=== PATIENT | male | born 1935 | race Caucasian/White ===

== ENCOUNTER 2017-09-27 18:45 | Inpatient (IN) | payer OTHER ==
[~2017-09-27] VITALS: Ht 193 cm; Wt 116.6 kg
[~2017-09-27 18:45] MED LIST: ADULT LOW DOSE81 MG; ADULT LOW DOSE81 MG PO; ALANINE; BIOFLEX TABLET1 EACH; COUMADIN 10MG T10 M1; FISHOIL; MEDROL4 MG PO; MELATONIN3 MG PO; OXYCODONE-APAP1 EAC4 PO; PROSCAR 5MG TABL5 M1 PO; PROSCAR 5MG TABL5 MG PO; TERAZOSIN; VICODIN 5-5001 EACH PO
[2017-09-27 18:50] VITALS: BP 179/96
[2017-09-27] MEDS ORDERED: OMEPRAZOLE40 MG PO (19:02)
[2017-09-27 19:22] LABS: ABSOLUTE BASOPHILS 0.1 thou/uL (0.0-0.2); ABSOLUTE EOSINOPHILS 0.8 thou/uL (0.0-0.7); ABSOLUTE MONOCYTES 0.8 thou/uL (0.0-1.2); ABSOLUTE NEUTROPHILS 4.3 thou/uL (1.6-8.1); BASOPHILS 0.7 %; EOSINOPHILS 7.8 %; HEMATOCRIT 43.8 % (42.0-52.0); HEMOGLOBIN 14.7 gm/dL (14.0-18.0); LYMPHOCYTES 40.1 %; MCH 33.4 pg (26.0-34.0); MCHC 33.6 g/dL (28.0-37.0); MCV 99.5 fL (80.0-100.0); MONOCYTES 8.1 %; NUCLEATED RBCS 0 /100WBC; PLATELET COUNT* 275 thou/uL (150-400); POLYS 43.3 %; RBC 4.41 mil/uL (4.50-6.00); WBC 9.9 thou/uL (4.0-11.0)
[2017-09-27 19:27] LABS: CALCIUM 9.1 mg/dL (8.5-10.1); CREATININE 1.3 mg/dL (0.6-1.3); POTASSIUM 4.1 mmol/L (3.5-5.1)
[2017-09-27 19:36] LABS: APTT 24.6 Seconds (25.0-31.3); INR 1.1; PROTIME 10.3 Seconds (9.20-11.50)
[2017-09-27 19:37] LABS: TOTAL BILIRUBIN 0.4 mg/dL (<0.1-1.0); TOTAL PROTEIN 8.3 g/dL (6.4-8.2); TROPONIN-I LEVEL 0.34 ng/mL (<0.06)
[2017-09-27 22:58] VITALS: BP 149/87
[2017-09-27 23:00] VITALS: BP 154/84
[2017-09-28] VITALS (15 sets, daily range): BP systolic 117–163; BP diastolic 59–86
--- NOTE | 2017-09-28 05:27 | NUR ---
PATIENT RESTED IN BED, NO ACUTE CHANGES. PATIENT DENIES PAIN, NO SIGNS OF DISTRESS. PATIENT IS NPO. FALL PRECAUTIONS IN PLACE, BED ALARM ON, CALL LIGHT WITHIN REACH, HOURLY ROUNDING OBSERVED.
[2017-09-28 05:42] LABS: CHOLESTEROL 112 mg/dL (<200); HDL CHOLESTEROL 32 mg/dL (>40); LDL CHOLESTEROL 59 mg/dL (<100); TC:HDL 3.5 Ratio (Not establshd); TRIGLYCERIDE 107 mg/dL (<150); VLDL 21 mg/dL (<40)
[2017-09-28 05:48] LABS: SERUM ASSESSMENT Clear
[2017-09-28 10:22] LABS: CREATININE 1.2 mg/dL (0.6-1.3); POTASSIUM 3.8 mmol/L (3.5-5.1)
[2017-09-28] MEDS ORDERED: ROXICODONE5 M2 PO (13:25)
--- NOTE | 2017-09-28 14:05 | EKG ---
[place] [address] ELECTROCARDIOGRAM REPORT Name: ILENE WINTER Room: [place] [address] ADM IN [facility]#: [id number] Admission: 09/27/17 Attend Phys: Adryan Lezama, Discharge: Date of : 37 Report #: [id number] THIS REPORT FOR: //name// 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: : 1935 Requested By: Monica Zambrano Order Number: [id number] MD: Sushant Ho Measurements Intervals [place] Rate: 69 P: 26 [place]: 177 QRS: 17 QRSD: 94 T: -12 QT: 418 QTc: 448 Interpretive Statements Sinus rhythm Borderline repolarization abnormality Compared to ECG 06/17/2014 14:13:34 st changes more prominent Electronically Signed On 09-28-2017 14:04:54 CDT by Sushant Ho [email or web address] <ELECTRONICALLY SIGNED> By: Sushant Ho MD, [facility] 09/28/17 1404 1850 1850 Sushant Ho MD, [facility] /EPI
--- NOTE | 2017-09-28 14:08 | EKG ---
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
--- NOTE | 2017-09-28 17:55 | NUR ---
ASSUMED CARE OF PT AT 0730. PT IS A&O X4 CALM AND COOPERATIVE. PT WENT TO THE [facility] THIS MORNING AND HAD 2 DRUG ELUDING STENTS PLACED. ACCESS WAS OBTAINED THROUGH THE RIGHT RADIAL ARTERY. PRESSURE WAS DECREASED PER PROTOCOL AND HAS NOW BEEN REMOVED AND A TEGADERM AND 4X4 WAS PLACED. NO BLEEDING OR HEMATOMA NOTED. PT VS MONITORED AND CHARTED PER PROTOCOL AND WNL. PT HAS HAD C/O BACK AND NECK PAIN THAT HAVE BEEN EFFECTIVELY CONTROLLED WITH PRN PO PAIN MEDS PER MAY. PT RESTING IN BED AT THIS TIME WITH NO APPARENT SIGNS OF DISTRESS. NURSING WILL CONTINUE TO MONITOR. NO C/O CP THIS SHIFT.
[2017-09-29] VITALS (7 sets, daily range): BP systolic 104–137; BP diastolic 61–78
--- NOTE | 2017-09-29 04:30 | NUR ---
ASSUMED PT CARE AT 1930. ASSESSMENT COMPLETED CHARTED. C/O ARTHRITIS IN BACK, HIPS, AND SHOULDERS. GAVE PRN OXY PER P.O. PT RESTING AT THIS TIME, IV SL SINCE AROUND 10PM, ABLE TO MAKE NEEDS KNOWN, UP WITH STANDBY. NO C/O CHEST PAIN OR SOA, ACCESS SITE FROM YESTERDAYS CATH IS CLEAN, DRY, NO S/SX OF HEMATOMA, AND SLIGHT BRUISING AROUND THE EDGES NOTED. NO PAIN NOTED FROM AREA. WILL CONTINUE TO MONITOR.
[2017-09-29 05:18] LABS: HEMATOCRIT 39.5 % (42.0-52.0); HEMOGLOBIN 13.4 gm/dL (14.0-18.0); MCHC 33.9 g/dL (28.0-37.0); MCV 100.3 fL (80.0-100.0); MPV 9.3 fl. (7.2-11.1); RBC 3.93 mil/uL (4.50-6.00); RDW-CV 13.9 % (10.5-14.5); WBC 9.3 thou/uL (4.0-11.0)
[2017-09-29 05:50] LABS: CALCIUM 9.1 mg/dL (8.5-10.1); CREATININE 1.3 mg/dL (0.6-1.3); MAGNESIUM 2.3 mg/dL (1.8-2.4); POTASSIUM 5.2 mmol/L (3.5-5.1)
[2017-09-29 06:01] LABS: TROPONIN-I LEVEL 24.5 ng/mL (<0.06)
--- NOTE | 2017-09-29 07:19 | CON ---
[address] [address] CONSULTATION Name: MOYILENE Eduardo Room: [place] [address] ADM IN .R.#: [id number] Admission: 09/27/17 Attend Phys: Adryan Lezama, Discharge: Date of : 37 Report #: [id number] THIS REPORT FOR: //name// CC: Dr. Maria Luisa ZHAO physician/PCP Adryan Lezama DATE OF SERVICE: 09/28/2017 HISTORY OF PRESENT ILLNESS: The patient is an 81-year-old white male who I was asked to see in the hospital after he complained of chest pain. The patient has no history of heart disease. He has had stress test in the past. Yesterday, he was at his home when he had some burning in his epigastric area consistent with indigestion. He had some belching. Then, about 6:00 he felt a tightness in his chest, went into his back. His left hand was numb. He felt nausea and diaphoretic. He finally came to the Emergency Room last night and was given nitroglycerin. The pain resolved after about a few hours. He has had no further pain. Cardiology consultation was requested. He denied the pain being related to lifting or bending over. He had had no recent blood in the stool. He denied the pain being related to cough. He had no rash on his chest. He denies exertional dyspnea, palpitations or syncope. PAST MEDICAL HISTORY: Significant for hemorrhoidectomy, knee surgery, tonsillectomy, uvulectomy for sleep apnea. About 7 years ago after a long car ride he developed leg pain and was found to have DVT and a pulmonary embolus. He was on warfarin for about 3 years. He does note about a month ago he was coughing and was given an inhaler and antibiotics by his primary care physician. MEDICATIONS: Currently only include omeprazole, aspirin, Proscar. ALLERGIES: He has no known drug allergies. FAMILY HISTORY: His brother had congestive heart failure. SOCIAL HISTORY: He is . 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 Quit smoking years ago. He used to drink alcohol, no longer drinks. His granddaughter is actually a nurse at [employer]. REVIEW OF SYSTEMS: He has had no history of stroke, asthma, peptic ulcer disease. He has had indigestion in the past. No liver disease, no kidney disease. He did have malaria while working as a missionary in [place]. No cancer. PHYSICAL EXAMINATION: GENERAL: Revealed a large male who is 6 feet [place] [address] CONSULTATION Name: MOYILENE Eduardo Room: [address] IN [facility]#: [id number] Admission: 09/27/17 Attend Phys: Adryan Lezama, Discharge: Date of : 37 Report #: [id number] VITAL SIGNS: He had a blood pressure of 160/80, his pulse was 70, he was afebrile. HEENT: He was anicteric. Conjunctivae pink. Mucous membranes moist. NECK: Veins nondistended. No carotid bruits. Neck supple. CHEST: Clear to auscultation. CARDIAC: Regular rate and rhythm without murmur. ABDOMEN: Soft, nontender. EXTREMITIES: Had no edema. SKIN: Warm and dry. NEUROLOGIC: Nonfocal. LYMPH: No adenopathy. MUSCULOSKELETAL: No joint effusion. LABORATORY DATA: His ECG showed a sinus rhythm with PVC. There is minimal ST segment depression noted in leads V4, V5, and V6. He did have downsloping ST segment depression in III and aVF. His chest x-ray last night in the Emergency Room showed normal heart size, clear lung macdonald. He did have a CT scan of the chest using a PE protocol last night that showed small lung pulmonary embolus in the right lower lobe. His lab work, sodium 142, BUN 20. Liver function studies were normal. His troponin this morning is 11.1. Cholesterol 112, triglycerides 107, HDL 32, LDL 59. White blood cell count 9.9, hemoglobin 14.7. IMPRESSION AND RECOMMENDATIONS: 1. Non-ST elevation myocardial infarction. Recommend cardiac catheterization. 2. History of indigestion. 3. History of sleep apnea. <ELECTRONICALLY SIGNED> By: Sushant Ho MD, [facility] 09/29/17 0719 0826 1415Sushant Ho MD, FAC /nt
[2017-09-29] MEDS ORDERED: ATORVASTATIN CA40 MG PO (08:54)
[2017-09-29] MEDS ORDERED: LOPRESSOR25 PO (08:54)
[2017-09-29] MEDS ORDERED: PROTONIX40 M1 PO (08:54)
[2017-09-29] MEDS ORDERED: CLOPIDOGREL75 MG PO (08:54)
--- NOTE | 2017-09-29 09:02 | NUR ---
ASSUMED PT. CARE AND RECEIVED REPORT AT 0730. PT A/OX4, VSS, MONITOR ON TRACNG SB. PT. DENIES CURRENT PAIN. ON RA @ 96, DENIES SOB. . FULL ASSESSMENT COMPLETED, REFER TO CHARTING. PT RIGHT WRIST WITH C/D/I DRESSING, BRUISING NOTED AT CATH SITE. CALL LIGHT IN REACH, WILL CONTINUE WITH PLAN OF CARE.
--- NOTE | 2017-09-29 14:11 | NUR ---
MET WITH PT, AND FAMILY TO DISCUSS HOME SITUATION/DC PLANNING. PT LIVES WITH . HE IS NORMALLY INDEPENDENT AND ACTIVE. HAS CANE BUT DOENS'T USE IT. HE PLANS TO RETURN HOME AT DC. PT DENIES ANY NEEDS. HE IS AWAITING CV CLEARANCE FOR DC, STATED 'I'LL WAIT TILL 4PM THEN I'M LEAVING.' NURSE AWARE.
[2017-09-29] MEDS ORDERED: NITROGLYCERIN0.4 MG SUBLING (16:39)
--- NOTE | 2017-09-29 18:40 | NUR ---
DC ORDERS RECEIVED. IV AND MONITOR REMOVED. PT. GIVEN DC INSTRUCTIONS, SCRIPTS, AND CARENOTES. ALL QUESTIONS ANSWERED. PT. LEFT VIA WHEELCHAIR TO RETURN HOME IN PERSONAL VEHICLE WITH AND SON, ALL BELONGINGS ACCOUNTED FOR.
--- NOTE | 2017-09-29 18:55 | 2DMMODE ---
[place] [address] 2 D/M-MODE ECHOCARDIOGRAM Name: ILENE WINTER Room: [facility] IN [facility]#: [id number] Admission: 09/27/17 Attend Phys: dAryan Pichardo Discharge: 09/29/17 Date of : 37 Date of Service: 09/29/17 1855 Report #: [id number] THIS REPORT FOR: //name// APPROVED REPORT Study performed: 09/29/2017 11:36:14 EXAM: Comprehensive 2D, Doppler, and color-flow Echocardiogram Patient Location: In-Patient Room #: [facility] Status: routine BSA: 2.46 HR: 56 bpm BP: 111/66 mmHg Rhythm: NSR Other Information Study Quality: Good Indications Acute AK Chest Pain 2D Dimensions LVEF(%): 62.17 (>50%) IVSd: 12.24 (7-11mm) LVOT Diam: 20.61 (18-24mm) LVDd: 43.37 mm PWd: 11.28 (7-11mm) Ascending Ao: 38.56 (22-36mm) LVDs: 28.94 (25-40mm) Aortic Root: 43.16 mm Mccoy's LVEF: 62.17 % Volumes Left Atrial Volume (Systole) LA ESV Index: 22.80 mL/m2 Aortic Valve AoV Peak Rudolph.: 1.32 m/s AO Peak Gr.: 7.01 mmHg LVOT Max P.32 mmHg AO Mean Gr.: 3.61 mmHg LVOT Mean P.38 mmHg LVOT Max V: 1.15 m/s AO V2 VTI: 28.80 cm LVOT Mean V: 0.70 m/s LAURA (VTI): 3.03 cm2 LVOT V1 VTI: 26.18 cm AI [place]: 1.20 m/s2 AI PHT: 800.68 [place] [address] 2 D/M-MODE ECHOCARDIOGRAM Name: ILENE WINTER Room: [address] IN [facility].#: [id number] Admission: 09/27/17 Attend Phys: Adryan Pichardo Discharge: 09/29/17 Date of : 37 Date of Service: 09/29/17 1855 Report #: [id number] Mitral Valve E/A Ratio: 1.13 MV Decel. Time: 223.77 ms MV E Max Rudolph.: 0.82 m/s MV PHT: 64.89 ms MVA (PHT): 3.39 cm2 TDI E/Lateral E': 7.45 E/Medial E': 10.25 Medial E' Rudolph.: 0.08 m/s Lateral E' Rudolph.: 0.11 m/s Pulmonary Valve PV Peak Rudolph.: 0.92 m/s PV Peak Gr.: 3.38 mmHg Tricuspid Valve RAP Estimate: 5.00 mmHg TR Peak Gr.: 26.86 mmHg RVSP: 31.86 mmHg PA Pressure: 31.86 mmHg Left Ventricle The left ventricle is normal size. There is normal LV segmental wall motion. There is normal left ventricular wall thickness. Left ventricular systolic function is normal. The left ventricular ejection fraction is within the normal range. LVEF is 55-60%. The left ventricular diastolic function is normal. Right Ventricle The right ventricle is normal size. The right ventricular systolic function is normal. Atria The left atrium size is normal. The right atrium size is normal. Aortic Valve Mild aortic valve sclerosis. Mild aortic regurgitation. There is no aortic valvular stenosis. Mitral Valve Mild mitral annular calcification. There is no mitral valve regurgitation noted. No evidence of mitral valve stenosis. Tricuspid Valve The tricuspid valve is normal in structure[place] [address] 2 D/M-MODE ECHOCARDIOGRAM Name: MOYILENE Eduardo Room: [address] IN M.R.#: [id number] Admission: 09/27/17 Attend Phys: Adryan Pichardo Discharge: 09/29/17 Date of : 37 Date of Service: 09/29/17 1855 Report #: [id number] regurgitation. Borderline pulmonary hypertension. Pulmonic Valve The pulmonary valve is normal in structure. Trace pulmonic regurgitation. Great Vessels The aortic root is normal in size. IVC is normal in size and collapses with >50% inspiration Pericardium There is no pericardial effusion. <Conclusion> The left ventricle is normal size. There is normal left ventricular wall thickness. Left ventricular systolic function is normal. The left ventricular ejection fraction is within the normal range. LVEF is 55-60%. The left ventricular diastolic function is normal. The right ventricle is normal size. The left atrium size is normal. Mild aortic valve sclerosis. Mild aortic regurgitation. There is no aortic valvular stenosis. Mild mitral annular calcification. There is no mitral valve regurgitation noted. No evidence of mitral valve stenosis. The tricuspid valve is normal in structure. IVC is normal in size and collapses with >50% inspiration There is no pericardial effusion. There is normal LV segmental wall motion. <ELECTRONICALLY SIGNED> By: Ilene Gallego MD, FACC 09/29/171854 54 54 Ilene Gallego MD, FACC /INF
--- NOTE | 2017-09-30 13:29 | EKG ---
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 <ELECTRONICALLY SIGNED> By: Celso Grant MD, FACC 09/30/17 1328 1251 1251 Celso Grant MD, FAC /EPI
--- NOTE | 2017-09-30 13:37 | EKG ---
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 : 1935 Requested By: Sushant Ho Order Number: [id number] Reading MD: Celso Grant Measurements Intervals [place] Rate: 54 P: 2 [place]: 194 QRS: 51 QRSD: 92 T: 126 QT: 463 QTc: 439 Interpretive Statements Sinus rhythm Borderline low voltage, extremity leads Abnormal T, consider ischemia, lateral leads Compared to ECG 09/27/2017 21:03:06 T-wave abnormality now present Possible ischemia now present Ventricular premature complex(es) no longer present ST (T wave) deviation no longer present Electronically Signed On 09-30-2017 13:37:08 CDT by Celso Grant [email or web address] <ELECTRONICALLY SIGNED> By: Celso Grant MD, [facility] 09/30/17 1337 0810 Celso Grant MD, [facility] /EPI
--- NOTE | 2017-10-01 07:53 | CARD ---
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 Inhib., Heparin Unfract. Procedure Narrative The patient was brought electively to the Cardiac Catheterization Laboratory and was prepped and draped in a sterile manner. The right wrist was infiltrated with 2% Lidocaine subcutaneous anesthesia. A Slender Glidesheath sheath was inserted into the right radial artery. Coronary angiography was performed using coronary diagnostic catheters. The right coronary system was accessed and visualized with a 3drc catheter. The left coronary system was accessed and visualized with a JL 3.5 6fr catheter. The left ventricle was accessed and visualized with a PC: Pig 6fr catheter. Left ventricular/Aortic Valve gradient assessed via catheter pullback. Left ventriculogram was performed in LUTZ projection. Closure device was deployed with a 6 Fr vascband. The patient tolerated the procedure well and there were no complications associated with the procedure. There was no hematoma. Intraoperative Conscious Sedation Sedation start time: 1330 Case end Time: 1351 [place] [address] CARDIAC CATH REPORT Name: ILENE WINTER Room: [address]#: [id number] Admission: 09/27/17 Attend Phys: Adryan Lezama, Discharge: 09/29/17 Date of : 37 Report #: [id number] Versed 2 mg Fluoro Time: 2.1 minutes Dose: DAP 19420 cGycm2 3409 mGy Contrast Type and Amount: Omnipaque 255 ml Coronary Angiography The patient's coronary anatomy is right dominant. Diagnostic Cath Left Main 0% stenosis LAD 90% stenosis just after 3rd diagonal branch, and distal 60% stenosis Diagonal 1 accutely occluded proximally Diagonal 3 60% ostial stenosis Circumflex 50% mid and 50% distal stenosis Right Coronary 30% mid stenosis Left Ventriculography The left ventricular ejection fraction is estimated to be 40-45%. Left ventricular wall motion abnormalities are present. There is no mitral insufficiency. moderate hypokinesis noted of the anterolateral wall Hemodynamics The aortic pressure is 119/59 mmHg with a mean of 84 mmHg. The left ventricular pressure is 113/-1 mmHg with a mean of mmHg. The left ventricular end diastolic pressure is 3 mmHg. There was no gradient across the aortic valve upon pullback. Pullback from the left ventricle to the aorta revealed no gradient across the aortic valve. PCI Technique Lesion Anticoagulation was achieved with Heparin. iv aggrastat given Patient was preloaded with Plavix. Percutaneous coronary intervention was performed on the first diagnonal branch segment. The lesion stenosis prior to intervention was 100% with FELICITA 0 flow. A 6F XB LAD 3.5 Guide Catheter was used to engage the lm ostium. A IG: BMW 190cm Interventional Guidewire was used to cross the lesion. BALLOON DILATION A Balloon catheter Trek RX 2.5 X 8 was inserted and inflated up to 12.00atm for 15seconds. Repeat angiography revealed the following post-dilatation results: 70% [place] [address] CARDIAC CATH REPORT Name: ILENE WINTER Room: [address]#: [id number] Admission: 09/27/17 Attend Phys: Adryan Lezama, Discharge: 09/29/17 Date of : 37 Report #: [id number] A drug-eluting stent Xience Alpine RX 2.75X12 was inserted and inflated up to 9.00atm for 24seconds. Repeat angiography revealed the following post-stent deployment results: 0% stenosis. Additional Inflation: 12atm for 15seconds. Final angiography reveals 0 % stenosis with FELICITA 3 flow. PCI Technique Lesion 2 Percutaneous Coronary Intervention was performed on the mid left anterior descending artery segment. Patient was preloaded with Plavix. Percutaneous coronary intervention was performed on the mid left anterior descending artery segment. The lesion stenosis prior to intervention was 90% with FELICITA 3 flow. A 6F XB LAD 3.5 Guide Catheter was used to engage the lm ostium. A IG: BMW 190cm Interventional Guidewire was used to cross the lesion. Balloon Dilation A Balloon catheter Trek RX 2.5 X 8 was inserted and inflated up to 12.00atm for 14seconds. Repeat angiography revealed the following post-dilatation results: 70% stenosis. Additional Inflation: 10.00atm for 12seconds. Additional Inflation: 12.00atm for 6seconds. HODA 12 X 8 SECONDS 12 HODA X 9 SECONDS HODA 12 X 8 SECONDS HODA 12 X 6 SECONDS Stent Deployment A drug-eluting stent was inserted and inflated up to 8.00atm for 13seconds. Repeat angiography revealed the following post-stent deployment results: 0% stenosis. Additional Inflation: 12.00atm for 12seconds. Additional Inflation: 16.00atm for 15seconds. Plaque shift noted into the 3rd diagonal branch just proxmial to stent with a residual 80% stenosis masoud wire required to advance the stent to the area of stenosis because of tortuosity of the lad and calcification Comments Decision made not to perform PTCA of the ostium of the 3rd diagonal branch since it was a small vessel, there was good flow into the diagonal branch, and the ostium was near the proximal end of the stent in the lad Conclusion 1. 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 severe stenosis of the mid lad 3. mild LV dysfunction 4. successful placement of a drug eluting stent in the first diagonal branch [address] [address] CARDIAC CATH REPORT Name: ILENE WINTER Room: [address] IN [facility]#: [id number] Admission: 09/27/17 Attend Phys: Adryan Lezama, Discharge: 09/29/17 Date of : 37 Report #: [id number] 5. successful placement of a drug eluting stent in the mid lad Recommendations Cardiac Rehabilitation Referral Aggressive Medical Therapy Medications Administered Clopidogrel <ELECTRONICALLY SIGNED> By: Sushant Ho MD, FACC 09/29/17 1322 1322 1322Daviminh Ho MD, FACC /INF
== END 2017-09-29 17:36 | disposition home or self-care (01) | DRG 247 ==
LOC: M.ERS 18:45 → M.TBA-ER 21:27 → M.2W 21:27
PROVIDERS: Internal Medicine; Internal Medicine Cardiovascular Disease; Personal Emergency Response Attendant; ADMIT Family Medicine
PROC: B2151ZZ Fluoroscopy of Left Heart using Low Osmolar Contrast (ICD-10-PCS; principal; 2017-09-28)
PROC: B2111ZZ Fluoroscopy of Multiple Coronary Arteries using Low Osmolar Contrast (ICD-10-PCS; principal; 2017-09-28)
PROC: 4A023N7 Measurement of Cardiac Sampling and Pressure, Left Heart, Percutaneous Approach (ICD-10-PCS; principal; 2017-09-28)
PROC: 027035Z Dilation of Coronary Artery, One Artery with Two Drug-eluting Intraluminal Devices, Percutaneous Approach (ICD-10-PCS; principal; 2017-09-28)
DX: I21.4 Non-ST elevation (NSTEMI) myocardial infarction (principal); I25.10 Atherosclerotic heart disease of native coronary artery without angina pectoris; K21.9 Gastro-esophageal reflux disease without esophagitis; G47.30 Sleep apnea, unspecified; Z96.652 Presence of left artificial knee joint; Z86.718 Personal history of other venous thrombosis and embolism; Z87.891 Personal history of nicotine dependence; Z86.711 Personal history of pulmonary embolism; Z79.82 Long term (current) use of aspirin; Z79.899 Other long term (current) drug therapy; Z82.49 Family history of ischemic heart disease and other diseases of the circulatory system

== ENCOUNTER 2018-02-21 17:54 | Emergency (ER) | payer OTHER ==
[~2018-02-21] VITALS: Ht 193 cm; Wt 113.4 kg
[~2018-02-21 17:54] MED LIST changes: +ATORVASTATIN CA40 MG PO; +CLOPIDOGREL75 MG PO; +LOPRESSOR25 PO; +NITROGLYCERIN0.4 MG SUBLING; +OMEPRAZOLE40 MG PO; +PROTONIX40 M1 PO; +ROXICODONE5 M2 PO
[2018-02-21] MEDS ORDERED: PERCOCET PO (19:10)
[2018-02-21 19:40] VITALS: BP 194/92
== END 2018-02-21 19:41 | disposition home or self-care (01) ==
LOC: M.ERS 17:54
DX: M75.101 Unspecified rotator cuff tear or rupture of right shoulder, not specified as traumatic (principal); K21.9 Gastro-esophageal reflux disease without esophagitis; Z86.718 Personal history of other venous thrombosis and embolism; Z86.711 Personal history of pulmonary embolism; Z96.652 Presence of left artificial knee joint

== ENCOUNTER → 2018-03-04 | Outpatient (CLI) | payer OTHER ==
[~2018-03-04] MED LIST changes: +PERCOCET PO
== END ==
LOC: M.MRI 07:01
DX: M75.101 Unspecified rotator cuff tear or rupture of right shoulder, not specified as traumatic (principal); M19.011 Primary osteoarthritis, right shoulder; M25.411 Effusion, right shoulder; M65.811 Other synovitis and tenosynovitis, right shoulder

== ENCOUNTER → 2020-08-23 | Outpatient (CLI) | payer MEDICARE | LOC: M.ULTRA 11:30 | PROVIDERS: ATTEND Nurse Practitioner Family | DX: R22.2 Localized swelling, mass and lump, trunk (principal) ==